=== PATIENT | male | born 1935 | race Caucasian/White ===

== ENCOUNTER 2019-02-16 22:37 | Emergency (ER) | payer MEDICAID ==
[~2019-02-16] VITALS: Ht 167.6 cm; Wt 55.8 kg
--- NOTE | 2019-02-16 22:49 | NUR ---
CONNECTED MONITOR , REFUSED H/L ,AND LAB DRAW UNTIL SEEN BY MD. PATIENT SON AT BEDSIDE TO INTERPRET FOR PATIENT SPEAKS CARLOS .
[2019-02-16] MEDS ORDERED: CARB-93 PO (22:53)
[2019-02-16] MEDS ORDERED: TERA2CAP4 PO (22:53)
--- NOTE | 2019-02-16 22:55 | NUR ---
[employer] FUSION [employer]DLE[employer] DEVELOPER AT [facility] FOR LAB DRAW AND NOW THEY AGREE TO HAVE THE H/L AND DO THE LAB .
[2019-02-16 23:01] LABS: BASOPHILS % (AUTO) 0.3 % (0.0-2.0); EOSINOPHILS # (AUTO) 0.1 K/uL (0.0-0.7); EOSINOPHILS % (AUTO) 1.3 % (0.0-7.0); HEMATOCRIT 39.9 % (36.7-47.1); HEMOGLOBIN 13.4 g/dL (12.5-16.3); LYMPHOCYTES # (AUTO) 1.7 K/uL (20.0-40.0); LYMPHOCYTES % (AUTO) 32.9 % (20.5-51.5); MEAN CORPUSCULAR HEMOGLOBIN 31.7 uug (23.8-33.4); MEAN CORPUSCULAR HGB CONC 34 g/dL (32.5-36.3); MEAN CORPUSCULAR VOLUME 94.3 fL (73.0-96.2); MONOCYTES # (AUTO) 0.5 K/uL (2.0-10.0); NEUTROPHILS # (AUTO) 2.9 K/uL (1.8-8.9); NEUTROPHILS % (AUTO) 56.5 % (38.5-71.5); PLATELET COUNT (AUTO) 148 K/uL (152-348); RED BLOOD CELL COUNT(AUTO) 4.23 MIL/uL (4.06-5.63); WHITE BLOOD COUNT (AUTO) 5.1 K/uL (3.6-10.2)
[2019-02-16 23:23] LABS: BILIRUBIN,DIRECT 0.1 mg/dL (0.0-0.2); BILIRUBIN,TOTAL 0.3 mg/dL (0.2-1.0); CREATININE 1.2 mg/dL (0.6-1.3); POTASSIUM 4.2 mmol/L (3.5-5.1); TOTAL PROTEIN, SERUM 6.8 g/dL (6.4-8.2)
--- NOTE | 2019-02-16 23:40 | NUR ---
DR:STEVEN AT [facility] EXPLAINED PLAN OF CARE AND TX. TO PATIENT AND PATIENTS SON .PATIENT AND PTS SON DONT WANT TO BE ADMITTED AND WANTS TO SIGN AMA .PATIENT AND PATIENT SON UNDERSTAND THERE RISK .
[2019-02-16] MEDS ORDERED: ASPIRIN 81 MG TAB.CHEW ONE (23:52)
[2019-02-17] MEDS ORDERED: ASPIRIN EC 81 MG TABLET.DR PO SCH
--- NOTE | 2019-02-17 00:12 | NUR ---
Patient does not wish to proceed with medical care recommended by (MITRA ). Patient given information related to possible complications, up to and including , which could occur as a result of leaving the hospital at this time. Patient verbalizes understanding of risks involved due to leaving against medical advice. Patient has signed AMA form.MD :MITRA SPOKED WITH PATIENT AND PATIENT SON WITH REGARDS TO FOLLOW TX WITH HIS PRIMARY MD ,WENT HOME ESCORTED BY SON .ADVISED TO CALL 911 IF EMERGENCY ARISES .COPY OF PATIENTS LABS AND XRAY GIVEN TO PATIENT .WENT HOME WITH ALL BELONGINGS .
[2019-02-17 00:15] VITALS: BP 158/89
== END 2019-02-17 00:16 | disposition left against medical advice (07) ==
LOC: ER 22:41
DX: R07.89 Other chest pain (principal); J90 Pleural effusion, not elsewhere classified; R91.8 Other nonspecific abnormal finding of lung field; I10 Essential (primary) hypertension; G20 Parkinson's disease; Z79.899 Other long term (current) drug therapy
CPT/HCPCS: 36415; 70030-TC; 71045; 83690; 85025; 93005; A4663